=== PATIENT | male | born 1985 | race Two or more races ===

== ENCOUNTER 2017-08-12 17:38 | Emergency (ER) | payer SELFPAY ==
[~2017-08-12] VITALS: Ht 167.6 cm; Wt 61.2 kg
[2017-08-12 19:27] LABS: Basophils # (auto) 0 uL; Basophils % (auto) 0.3 % (0.0-2.0); Eosinophils # (auto) 0 uL; Eosinophils % (auto) 0.1 % (0.0-7.0); Hematocrit 45.6 % (41.0-53.0); Hemoglobin 15.3 g/dL (13.5-17.5); Lymphocytes # (auto) 0.8 uL; Lymphocytes % (auto) 8.3 % (10.0-50.0); Mean Corpuscular Hemoglobin 29.6 pg (28.0-32.0); Mean Corpuscular Hgb Conc. 33.5 g/dL (32.0-36.0); Mean Corpuscular Volume 88.4 fL (80.0-100.0); Mean Platelet Volume 6.9 fL (6.9-10.8); Monocytes # (auto) 0.6 uL; Monocytes % (auto) 5.7 % (0.0-12.0); Neutrophils # (auto) 8.6 uL; Neutrophils % (auto) 85.6 % (37.0-80.0); Nucleated Red Blood Cells % 0.1 %; Platelet Count (auto) 237 10^3/uL (140-450); Red Cell Distribution Width 13.7 % (11.8-14.3)
[2017-08-12 19:40] LABS: Albumin 4.1 g/dL (3.4-5.0); BUN/Creatinine Ratio 15.3; Calcium 8.8 mg/dL (8.5-10.1); Potassium 3.8 mmol/L (3.5-5.1)
[2017-08-12 19:43] LABS: Bilirubin, Total 0.2 mg/dL (0.2-1.0); Total Protein 7.3 g/dL (6.4-8.2)
[2017-08-12] MEDS ORDERED: PHENYTOIN SODIUM 100 MG CAP PO ONE (23:30)
[2017-08-12 23:54] VITALS: BP 128/92
== END 2017-08-12 23:52 | disposition home or self-care (01) ==
LOC: ER 17:38
DX: G40.909 Epilepsy, unspecified, not intractable, without status epilepticus (principal); F12.10 Cannabis abuse, uncomplicated; Z91.14 Patient's other noncompliance with medication regimen
CPT/HCPCS: 36415; 70450; 70480; 80053; 80185; 80307; 85025

== ENCOUNTER 2018-02-13 09:31 | Emergency (ER) | payer SELFPAY ==
[~2018-02-13] VITALS: Ht 175.3 cm; Wt 68.0 kg
[2018-02-13] MEDS ORDERED: LORazepam 2MG/ML-1ML VIAL IV ONE (10:45)
[2018-02-13] MEDS ORDERED: SODIUM CHLORIDE 0.9% 1,000 ML IV ONE (10:57)
[2018-02-13 11:56] LABS: Basophils # (auto) 0 uL; Basophils % (auto) 0.2 % (0.0-2.0); Eosinophils # (auto) 0 uL; Eosinophils % (auto) 0.3 % (0.0-7.0); Hematocrit 44.4 % (41.0-53.0); Hemoglobin 14.6 g/dL (13.5-17.5); Lymphocytes # (auto) 0.7 uL; Lymphocytes % (auto) 7.9 % (10.0-50.0); Mean Corpuscular Hemoglobin 28.4 pg (28.0-32.0); Mean Corpuscular Volume 86.1 fL (80.0-100.0); Monocytes # (auto) 0.5 uL; Monocytes % (auto) 5.4 % (0.0-12.0); Neutrophils # (auto) 7.5 uL; Neutrophils % (auto) 86.2 % (37.0-80.0); Nucleated Red Blood Cells % 0.1 %; Platelet Count (auto) 228 10^3/uL (140-450); Red Blood Cells 5.16 10^6/uL (4.5-5.90); Red Cell Distribution Width 13.2 % (11.8-14.3); White Blood Cell 8.7 10^3/uL (4.4-10.8)
[2018-02-13 12:15] LABS: BUN/Creatinine Ratio 18.9; Bilirubin, Total 0.3 mg/dL (0.2-1.0); Calcium 8.3 mg/dL (8.5-10.1); Magnesium 2.7 mg/dL (1.6-2.6); Potassium 3.9 mmol/L (3.5-5.1); Total Protein 7.1 g/dL (6.4-8.2)
[2018-02-13 13:47] LABS: Alcohol, Urine < 3.0 mg/dL (0-5); Amphetamine Screen, Urine NEGATIVE (NEGATIVE); Barbiturate Scree,Urine NEGATIVE (NEGATIVE); Benzodiazephine Screen, Urine NEGATIVE (NEGATIVE); Cannabinoid Screen, Urine POSITIVE (NEGATIVE); Cocaine Screen, Urine NEGATIVE (NEGATIVE); Opiate Scree,Urine NEGATIVE (NEGATIVE); Phencyclidine Screen, Urine NEGATIVE (NEGATIVE)
[2018-02-13 13:57] LABS: Urine Bacteria NONE SEEN /hpf (None Seen); Urine Blood Negative /uL (Negative); Urine Specific Gravity 1.022 (1.001-1.035); Urine WBC 1 /hpf (0 - 3)
[2018-02-13 15:57] VITALS: BP 111/79
== END 2018-02-13 16:25 | disposition home or self-care (01) ==
LOC: EDSEX 09:31 → ER 09:31 → EDBD 09:31 → ER 16:25
DX: G40.909 Epilepsy, unspecified, not intractable, without status epilepticus (principal); F12.10 Cannabis abuse, uncomplicated
CPT/HCPCS: 36415; 71046; 80053; 80307; 81001; 83735; 85025; 96361; 96374; 99285; J2060; J7030

== ENCOUNTER 2019-09-24 19:10 | Emergency (ER) | payer BC ==
[~2019-09-24] VITALS: Ht 167.6 cm; Wt 61.2 kg
[2019-09-24] MEDS ORDERED: SODIUM CHLORIDE 0.9% 1,000 ML IV ONE ×3 (20:00→21:15)
[2019-09-24] MEDS ORDERED: LORazepam 2MG/ML-1ML VIAL IV ONE (20:00)
[2019-09-24 21:52] LABS: Basophils # (auto) 0 uL; Basophils % (auto) 0.4 % (0.0-2.0); Eosinophils # (auto) 0 uL; Eosinophils % (auto) 0.4 % (0.0-7.0); Hematocrit 41.4 % (41.0-53.0); Hemoglobin 13.8 g/dL (13.5-17.5); Lymphocytes # (auto) 1.1 uL; Lymphocytes % (auto) 10.9 % (10.0-50.0); Mean Corpuscular Hemoglobin 29.2 pg (28.0-32.0); Mean Corpuscular Hgb Conc. 33.4 g/dL (32.0-36.0); Mean Corpuscular Volume 87.4 fL (80.0-100.0); Monocytes # (auto) 0.7 uL; Monocytes % (auto) 7.3 % (0.0-12.0); Platelet Count (auto) 228 10^3/uL (140-450); Red Blood Cells 4.74 10^6/uL (4.5-5.90); Red Cell Distribution Width 13.8 % (11.8-14.3); White Blood Cell 9.9 10^3/uL (4.4-10.8)
[2019-09-24 22:02] LABS: Potassium 3.7 mmol/L (3.5-5.1)
[2019-09-24 22:10] LABS: Albumin 3.8 g/dL (3.4-5.0); BUN/Creatinine Ratio 15.6; Bilirubin, Total 0.3 mg/dL (0.2-1.0); Calcium 8.3 mg/dL (8.5-10.1); Total Protein 6.6 g/dL (6.4-8.2)
[2019-09-24 23:28] LABS: Urine Bacteria FEW /hpf (None Seen); Urine Blood TRACE /uL (Negative); Urine Sperm PRESENT /hpf (None Seen); Urine WBC 1 /hpf (0 - 3)
[2019-09-24 23:42] LABS: Alcohol, Urine < 3.0 mg/dL (0-5); Amphetamine Screen, Urine NEGATIVE (NEGATIVE); Barbiturate Scree,Urine NEGATIVE (NEGATIVE); Benzodiazephine Screen, Urine NEGATIVE (NEGATIVE); Cannabinoid Screen, Urine POSITIVE (NEGATIVE); Cocaine Screen, Urine POSITIVE (NEGATIVE); Opiate Scree,Urine NEGATIVE (NEGATIVE); Phencyclidine Screen, Urine NEGATIVE (NEGATIVE)
[2019-09-25] MEDS ORDERED: LEVETIRACETAM INJ 1,000 MG in D5W 5% 100 ML IV ONE ×2
[2019-09-25] MEDS ORDERED: LEVETIRACETAM 500 MG/5ML INJ IV ONE (00:30)
[2019-09-25 01:00] VITALS: BP 118/73
== END 2019-09-25 01:54 | disposition home or self-care (01) ==
LOC: EDBD 19:10 → ER 19:15
DX: R56.9 Unspecified convulsions (principal); F19.10 Other psychoactive substance abuse, uncomplicated; E86.0 Dehydration
CPT/HCPCS: 36415; 70450; 80053; 80307; 80320; 81001; 85025; 94761; 96361; 96365; 96375; 99284; J1953; J2060; J7030; J7060

== ENCOUNTER 2020-06-02 12:16 | Emergency (ER) | payer BC, OTHER ==
[~2020-06-02] VITALS: Ht 175.3 cm; Wt 68.0 kg
[2020-06-02] MEDS ORDERED: SODIUM CHLORIDE 0.9% 1,000 ML IV ONE (13:39)
[2020-06-02 13:45] LABS: Basophils # (auto) 0 10 ^3/uL (0-0.2); Basophils % (auto) 0.5 % (0.0-2.0); Eosinophils # (auto) 0 10 ^3/uL (0-0.8); Eosinophils % (auto) 0.5 % (0.0-7.0); Hematocrit 40.4 % (41.0-53.0); Hemoglobin 13.4 g/dL (13.5-17.5); Lymphocytes # (auto) 0.9 10 ^3/uL (0.4-5.4); Lymphocytes % (auto) 10.8 % (10.0-50.0); Mean Corpuscular Hemoglobin 29.1 pg (28.0-32.0); Mean Corpuscular Hgb Conc. 33.1 g/dL (32.0-36.0); Monocytes # (auto) 0.6 10 ^3/uL (0-1.3); Monocytes % (auto) 7.3 % (0.0-12.0); Neutrophils # (auto) 6.6 10 ^3/uL (1.6-8.6); Neutrophils % (auto) 80.9 % (37.0-80.0); Nucleated Red Blood Cells % 0.1 %; Platelet Count (auto) 249 10^3/uL (140-450); Red Blood Cells 4.59 10^6/uL (4.5-5.90); Red Cell Distribution Width 13.7 % (11.8-14.3); White Blood Cell 8.1 10^3/uL (4.4-10.8)
[2020-06-02] MEDS ORDERED: LORazepam 2MG/ML-1ML VIAL IV ONE (13:45)
[2020-06-02 13:59] LABS: Albumin 3.5 g/dL (3.4-5.0); Calcium 8.8 mg/dL (8.5-10.1); Potassium 4.3 mmol/L (3.5-5.1)
[2020-06-02 14:04] LABS: BUN/Creatinine Ratio 13.8; Bilirubin, Total 0.3 mg/dL (0.2-1.0); Total Protein 6.7 g/dL (6.4-8.2)
[2020-06-02] MEDS ORDERED: LIDOCAINE 2% (LOCAL ANESTH.) PF 5ml SDV ONE (15:19)
[2020-06-02 15:22] LABS: Urine WBC None Seen /hpf (0 - 3)
[2020-06-02 15:49] LABS: Urine Bacteria NONE SEEN /hpf (None Seen); Urine Blood Negative /uL (Negative); Urine Specific Gravity 1.008 (1.001-1.035)
[2020-06-02 15:50] LABS: Amphetamine Screen, Urine NEGATIVE (NEGATIVE); Barbiturate Scree,Urine NEGATIVE (NEGATIVE); Cannabinoid Screen, Urine POSITIVE (NEGATIVE); Cocaine Screen, Urine NEGATIVE (NEGATIVE); Opiate Scree,Urine NEGATIVE (NEGATIVE); Phencyclidine Screen, Urine NEGATIVE (NEGATIVE)
[2020-06-02 15:58] LABS: Benzodiazephine Screen, Urine NEGATIVE (NEGATIVE)
[2020-06-02] MEDS ORDERED: IBUPROFEN 600 MG TAB PO ONE (16:00)
[2020-06-02 16:07] LABS: Alcohol, Urine < 3.0 mg/dL (0-10)
[2020-06-02] MEDS ORDERED: TETANUS-DIPTH-ACEL PERTUSSIS 0.5ML SYR Tdap IM ONE (16:15)
[2020-06-02 16:54] VITALS: BP 144/80
== END 2020-06-02 16:51 | disposition home or self-care (01) ==
LOC: ER 12:16 → EDBD 12:16 → ER 16:51
DX: S01.112A Laceration without foreign body of left eyelid and periocular area, initial encounter (principal); G40.909 Epilepsy, unspecified, not intractable, without status epilepticus; Z91.19 Patient's noncompliance with other medical treatment and regimen; W22.8XXA Striking against or struck by other objects, initial encounter; Y93.89 Activity, other specified; Y92.89 Other specified places as the place of occurrence of the external cause; Y99.8 Other external cause status
CPT/HCPCS: 12011; 36415; 70450; 71046; 72125; 80053; 80307; 81001; 83735; 85025; 90471; 90715; 93005; 96365; 96375; 99285; J1953; J2001; J2060; J7030; J7060

== ENCOUNTER → 2020-08-01 | Emergency (ER) | payer SELFPAY ==
[~2020-08-01] VITALS: Ht 175.3 cm; Wt 63.5 kg
[~2020-08-01] MED LIST: BACITRACIN INJ 50000 UNIT VIAL TOP ONE; BACITRACIN TOP OINT 1 UD PKG TOP ONE; LIDOCAINE 1% (LOCAL ANESTH.) PF 5ml SDV ID ONE; LIDOCAINE 1% HCL (LOCAL ANESTH.) INJ 20ML MDV ONE
[2020-08-01 18:50] VITALS: BP 123/62
== END | disposition home or self-care (01) ==
LOC: ER 15:38
DX: S01.112A Laceration without foreign body of left eyelid and periocular area, initial encounter (principal); R56.9 Unspecified convulsions; X58.XXXA Exposure to other specified factors, initial encounter; Y93.89 Activity, other specified; Y92.89 Other specified places as the place of occurrence of the external cause; Y99.8 Other external cause status
CPT/HCPCS: 12013; 70450; 70486; 96365; 99285; J1953; J2001; J7060

== ENCOUNTER 2020-09-16 17:18 | Emergency (ER) | payer BC, MEDICAID ==
[~2020-09-16] VITALS: Ht 175.3 cm; Wt 63.5 kg
[2020-09-16 22:10] VITALS: BP 116/74
== END 2020-09-16 22:37 | disposition home or self-care (01) ==
LOC: ER 17:18
DX: R56.9 Unspecified convulsions (principal); Z76.0 Encounter for issue of repeat prescription

== ENCOUNTER 2020-10-21 00:20 | Emergency (ER) | payer MEDICAID ==
[~2020-10-21] VITALS: Ht 170.2 cm; Wt 61.2 kg
[2020-10-21 08:22] VITALS: BP 122/68
[2020-10-21] MEDS ORDERED: levETIRAcetam 500 MG TAB PO ONE (08:45)
== END 2020-10-21 03:26 | disposition left against medical advice (07) ==
LOC: ER 00:39
DX: G40.909 Epilepsy, unspecified, not intractable, without status epilepticus (principal); F10.129 Alcohol abuse with intoxication, unspecified; Y90.8 Blood alcohol level of 240 mg/100 ml or more

== ENCOUNTER 2020-11-28 13:38 | Emergency (ER) | payer MEDICAID ==
[~2020-11-28] VITALS: Ht 175.3 cm; Wt 63.5 kg
[2020-11-28] MEDS ORDERED: SODIUM CHLORIDE 0.9% 1,000 ML IV ONE (14:30)
[2020-11-28] MEDS ORDERED: levETIRAcetam 500 MG/5ML INJ IV ONE (16:14)
[2020-11-28 16:48] LABS: Basophils # (auto) 0 10 ^3/uL (0-0.2); Basophils % (auto) 0.3 % (0.0-2.0); Eosinophils # (auto) 0 10 ^3/uL (0-0.8); Eosinophils % (auto) 0.4 % (0.0-7.0); Hematocrit 41.3 % (41.0-53.0); Hemoglobin 14.1 g/dL (13.5-17.5); Lymphocytes # (auto) 1.1 10 ^3/uL (0.4-5.4); Lymphocytes % (auto) 11.2 % (10.0-50.0); Mean Corpuscular Hemoglobin 29.2 pg (28.0-32.0); Mean Corpuscular Volume 85.8 fL (80.0-100.0); Monocytes # (auto) 0.6 10 ^3/uL (0-1.3); Monocytes % (auto) 6.2 % (0.0-12.0); Neutrophils % (auto) 81.9 % (37.0-80.0); Platelet Count (auto) 241 10^3/uL (140-450); Red Blood Cells 4.82 10^6/uL (4.5-5.90); Red Cell Distribution Width 13.8 % (11.8-14.3); White Blood Cell 9.7 10^3/uL (4.4-10.8)
[2020-11-28 16:57] LABS: BUN/Creatinine Ratio 13.8; Potassium 3.8 mmol/L (3.5-5.1)
[2020-11-28 16:59] LABS: Bilirubin, Total 0.2 mg/dL (0.2-1.0); Total Protein 7.2 g/dL (6.4-8.2)
[2020-11-28] MEDS ORDERED: ACETAMINOPHEN 500 MG TAB PO ONE ×2 (19:33→19:45)
[2020-11-28 20:15] VITALS: BP 131/89
[2020-11-28 22:51] LABS: Alcohol, Urine < 3.0 mg/dL (0-10); Amphetamine Screen, Urine NEGATIVE (NEGATIVE); Barbiturate Scree,Urine NEGATIVE (NEGATIVE); Benzodiazephine Screen, Urine NEGATIVE (NEGATIVE); Cannabinoid Screen, Urine POSITIVE (NEGATIVE); Cocaine Screen, Urine NEGATIVE (NEGATIVE); Opiate Scree,Urine NEGATIVE (NEGATIVE); Phencyclidine Screen, Urine NEGATIVE (NEGATIVE)
== END 2020-11-28 22:10 | disposition home or self-care (01) ==
LOC: ER 13:38 → EDBD 13:38 → EDSEX 13:38 → ER 22:10
DX: G40.909 Epilepsy, unspecified, not intractable, without status epilepticus (principal); F12.10 Cannabis abuse, uncomplicated
CPT/HCPCS: 36415; 70450; 80053; 80307; 82542; 83735; 85025; 96361; 96365; 96366; 99284; J1953; J7030; J7060

== ENCOUNTER 2022-03-19 10:08 | Emergency (ER) | payer MEDICAID, OTHER ==
[~2022-03-19] VITALS: Ht 170.2 cm; Wt 63.5 kg
[2022-03-19] MEDS ORDERED: SILV1CRE82 TOP (10:40)
[2022-03-19 10:56] VITALS: BP 113/80
== END 2022-03-19 10:59 | disposition home or self-care (01) ==
LOC: ER 10:08
DX: T22.20XA Burn of second degree of shoulder and upper limb, except wrist and hand, unspecified site, initial encounter (principal); X10.2XXA Contact with fats and cooking oils, initial encounter; Y93.89 Activity, other specified; Y92.89 Other specified places as the place of occurrence of the external cause; Y99.8 Other external cause status
CPT/HCPCS: 16020

== ENCOUNTER 2024-04-05 19:26 | Emergency (ER) | payer SELFPAY ==
[~2024-04-05] VITALS: Ht 177.8 cm; Wt 72.7 kg
[2024-04-05 19:26] VITALS: BP 155/64; PULSE 71; RESP 16; O2SAT 100
[~2024-04-05 19:26] MED LIST changes: -BACITRACIN INJ 50000 UNIT VIAL TOP ONE; -BACITRACIN TOP OINT 1 UD PKG TOP ONE; -LIDOCAINE 1% (LOCAL ANESTH.) PF 5ml SDV ID ONE; -LIDOCAINE 1% HCL (LOCAL ANESTH.) INJ 20ML MDV ONE; +SILV1CRE82 TOP
[2024-04-05] MEDS ORDERED: LEVE100012 PO (19:47)
[2024-04-05] MEDS: levETIRAcetam 1000 mg/100ml 100 ML IV ONE (19:50)
[2024-04-05 20:16] LABS: Chloride 104 mmol/L (98-107); Potassium 3.9 mmol/L (3.5-5.1); Sodium 138 mmol/L (136-145)
[2024-04-05 20:17] LABS: Anion Gap 15 (5-15); Carbon Dioxide 19 mmol/L (20-30)
[2024-04-05 20:22] LABS: BUN/Creatinine Ratio 9.9 (10.0-20.0); Blood Urea Nitrogen 11 mg/dL (9-23); Glucose 132 mg/dL (74-106)
[2024-04-05 20:23] LABS: Blood Alcohol < 3.0 mg/dL (<10)
== END 2024-04-05 20:58 | disposition home or self-care (01) ==
LOC: EDBD 19:26 → ER 19:26 → EDSEX 19:26 → ER 20:58
DX: G40.909 Epilepsy, unspecified, not intractable, without status epilepticus (principal); F15.90 Other stimulant use, unspecified, uncomplicated; Z76.0 Encounter for issue of repeat prescription
CPT/HCPCS: 36415; 80048; 80320; 96365; 99284; J1953

== ENCOUNTER 2024-11-23 15:28 | Emergency (ER) | payer SELFPAY ==
[~2024-11-23] VITALS: Ht 175.3 cm; Wt 63.6 kg
[~2024-11-23 15:28] MED LIST changes: +LEVE100012 PO
[2024-11-23 15:30] VITALS: BP 145/75; PULSE 114; RESP 20; TEMP 97.8; O2SAT 99
--- NOTE | 2024-11-23 15:53 | ED.PDOC ---
History of Present Illness HPI Comments 39 y/o M, seizures and polysubstance abuse and a FMHx of DM, is BIBA s/p seizure episode, today. Per EMS report, patient is stated to have had a witnessed seizure, lasting, approximately, 5x minutes in duration, while riding on the bus. Seizure was reported to have been witnessed by business analyst consultant then in addition to the patient taking 500mg BID Keppra but having Hx of mixed compliancy in the past. Patient was also commented to have admit to EtOH consumption, yesterday, and using marijuana, this morning. On scene, patient was found with a blood glucose of 167, with no signs of trauma or incontinence. At time of assessment, patient reports on last seizure taking place 2x months ago and denies having any headache, injuries, or other associated symptoms or modifiers at this time. Chief Complaint: Seizure Time Seen by MD: 15:40 Primary Care Provider: [facility] Reviewed Notes: Nurses Notes, Evaluation Specialist Notes, Medications, Allergies Allergies: Coded Allergies: NO KNOWN ALLERGIES (Unverified , 08/12/17) Home Meds Active Scripts Levetiracetam (Keppra) 1,000 Mg Tab, 1 TAB PO BID, #60 TAB 5 Refills Prov:YNES JOHN MD 04/05/24 Silver Sulfadiazine (Silvadene) 1 % Cre, 1 APPLIC TOP DAILY for 7 Days, #50 GRAMS Prov:MIKHAIL ROBERTS MD 03/19/22 Information Source: Patient, Emergency Med Personnel Mode of Arrival: EMS Severity: Moderate Timing: Hours Duration: Minutes Prehospital treatment: 12 Lead EKG, Accucheck, Fabrication And Assembly Supervisor Past Medical History PAST MEDICAL HISTORY: Seizures Surgical History (Other): left wrist Sx Family History Family History: Reviewed,noncontributory to illness, No family hx of Cancer, No family hx of Heart bernadette, No family hx of HTN, No family hx ofKidney bernadette, No fami ly hx of Liver bernadette, No family hx of Lung bernadette, No family hx of Stroke, Family hx of DM Social History Smoker: Non-Smoker Alcohol: Occasionally Drugs: Marijuana Lives In: Home Constitutional: denies: chills, diaphoresis, fatigue, fever, malaise, sweats, weakness, others EENTM: denies: blurred vision, double vision, ear bleeding, ear discharge, ear drainage, ear pain, ear ringing, eye pain, eye redness, hearing loss, mouth pain, mouth swelling, nasal discharge, nose bleeding, nose congestion, nose pain, photophobia, tearing, throat pain, throat swelling, voice changes, others Respiratory: denies: cough, hemoptysis, orthopnea, SOB at rest, shortness of breath, SOB with excertion, stridor, wheezing, others Cardiovascular: denies: chest pain, dizzy spells, diaphoresis, Dyspnea on exertion, edema, irregular heart beat, left arm pain, lightheadedness, palpitations, PND, syncope, others Gastrointestinal: denies: abdomen distended, abdominal pain, blood streaked bowels, constipated, diarrhea, dysphagia, difficulty swallowing, hematemesis, melena, nausea, poor appetite, poor fluid intake, rectal bleeding, rectal pain, vomiting, others Genitourinary: denies: burning, dysuria, flank pain, frequency, hematuria, incontinence, penile discharge, penile sore, pain, testicle pain, testicle swelling, urgency, others Neurological: reports: seizure; denies: dizziness, fainting, headache, left sided numbness, left sided weakness, numbness, paresthesia, pre-existing deficit, right sided numbness, right sided weakness, speech problems, tingling, tremors, weakness, others Musculoskeletal: denies: back pain, gout, joint pain, joint swelling, muscle pain, muscle stiffness, neck pain, others Integumetry: denies: bruises, change in color, change in hair/nails, dryness, laceration, lesions, lumps, rash, wounds, others Allergic/Immunocompromised: denies: Difficulty Healing, Frequent Infections, Hives, Itching, others Hematologic/Lymphatic: denies: anemia, blood clots, easy bleeding, easy bruising, swollen glands, others Endocrine: denies: excessive hunger, excessive sweating, excessive thirst, excessive urination, flushing, intolerance to cold, intolerance to heat, un explained weight gain, unexplained weight loss, others Psychiatric: denies: anxiety, bipolar disorder, depression, hopeless, panic disorder, schizophrenia, sleepless, suicidal, others All Other Systems: Reviewed and Negative Physical Exam General Appearance: No Apparent Distress, Other (The patient has a odor marijuana) HEENT: Normal ENT Inspection, Pharynx Normal, TMs Normal Neck: Full Range of Motion, Non-Tender, Normal, Normal Inspection Respiratory: Chest Non-Tender, Lungs Clear, No Accessory Muscle Use, No Respiratory Distress, Normal Breath Sounds Cardiovascular: No Edema, No JVD, No Murmur, No Gallop, Normal Peripheral Pulses, Regular Rate/Rhythm Breast Exam: Deferred Gastrointestinal: No Organomegaly, Non Tender, No Pulsatile Mass, Normal Bowel Sounds, Soft Genitalia: Deferred Pelvic: Deferred Rectal: Deferred Extremities: No calf tenderness, Normal capillary refill, Normal inspection, Normal range of motion, Non-tender, No pedal edema Musculoskeletal : Apperance: Normal Neurologic: Alert, acid splicer II-XII nml as Tested, No Motor Deficits, Normal Affect, Normal Mood, No Sensory Deficits Cerebellar Function: Normal Reflexes: Normal Skin: Dry, Normal Color, Warm Lymphatic: No Adenopathy Was a procedure done? Was a procedure done?: No Differential Dx Considerations may include: seizure, pseudoseizures, medication noncompliant, encephalopathy, electrolyte imbalance X-Ray, Labs, Meds, VS At this time, the patient was being discharged. The patient has been seizure-free here in the emergency department's The patient will follow up with the primary care doctor The patient was told to be compliant with his Keppra The patient was also told to put down the alcohol as well as the marijuana The patient states that he would like to leave at this time so he was walking out of the department's Time of 1ST Reevaluation: 16:10 Reevaluation 1ST: Unchanged Patient Education/Counseling: Diagnosis, Treatment, Prognosis, Need For Follow Up Family Education/Counseling: No Family Present Departure 1 Departure Time of Disposition: 16:16 Impression: Primary Impression: Breakthrough seizure Disposition: 01 HOME / SELF CARE / HOMELESS Condition: Fair Discharged With: Self Critical Care Note Critical Care Time?: No Stability Stability form required: No Heart Score Heart Score: Heart Score Response (Comments) Value History N/A 0 EKG N/A 0 Age N/A 0 Risk Factors N/A 0 Troponin N/A 0 Total 0 I personally scribed for YNES JOHN MD ([email or web address]) on 11/23/24 at 15:53. Electronically submitted by Tom Castorena ([email or web address]). YNES JOHN MD Nov 23, 2024 15:53
[2024-11-23] MEDS: levETIRAcetam 1000 mg/100ml 100 ML IV ONE (16:18)
== END 2024-11-23 17:02 | disposition home or self-care (01) ==
LOC: ER 15:28 → EDBD 15:28 → ER 16:40
DX: G40.909 Epilepsy, unspecified, not intractable, without status epilepticus (principal); F12.90 Cannabis use, unspecified, uncomplicated; Z98.890 Other specified postprocedural states
CPT/HCPCS: 96365; 99284; J1953

== ENCOUNTER 2025-02-14 15:49 | Emergency (ER) | payer MEDICAID, OTHER ==
[~2025-02-14] VITALS: Ht 175.3 cm; Wt 61.3 kg
[2025-02-14 16:05] VITALS: BP 112/74; PULSE 78; RESP 16; TEMP 98.2; O2SAT 98
--- NOTE | 2025-02-14 16:38 | ED.PDOC ---
History of Present Illness HPI Comments 39M presents to the ER w/ no prior Hx associated to the c/c of a medication refill. Pt reports on having to run out of Keppra 500mg of 2 tablets and has to take 2 tablets a day. Pt notes that she has no insurance. Pt states that the last Sz was 1 month ago. PMHx of Sz. Denies chills, fever, N/V/D, SOB, CP or no other associated symptom's, modifiers, recent injuries or sick contacts at this time. Chief Complaint: Seizure Time Seen by MD: 16:20 Primary Care Provider: [facility] Reviewed Notes: Nurses Notes, Medications, Allergies Allergies: Coded Allergies: NO KNOWN ALLERGIES (Unverified , 08/12/17) Home Meds Active Scripts Levetiracetam (Keppra) 1,000 Mg Tab, 1 TAB PO BID, #60 TAB 5 Refills Prov:YNES JOHN MD 04/05/24 Silver Sulfadiazine (Silvadene) 1 % Cre, 1 APPLIC TOP DAILY for 7 Days, #50 GRAMS Prov:MIKHAIL ROBERTS MD 03/19/22 Information Source: Patient Mode of Arrival: Ambulatory Severity: Moderate Timing: Came on: Gradually Duration: Since onset Prehospital treatment: None Medication Refill: Ran out of Medication, For: Other (Sz) Past Medical History PAST MEDICAL HISTORY: Seizures Surgical History: Denies all surgeries Family History Family History: Reviewed,noncontributory to illness, Unknown Social History Smoker: Non-Smoker Alcohol: Unknown Drugs: Unknown Lives In: Home Constitutional: denies: chills, diaphoresis, fatigue, fever, malaise, sweats, weakness, others EENTM: denies: blurred vision, double vision, ear bleeding, ear discharge, ear drainage, ear pain, ear ringing, eye pain, eye redness, hearing loss, mouth pain, mouth swelling, nasal discharge, nose bleeding, nose congestion, nose pain, photophobia, tearing, throat pain, throat swelling, voice changes, others Respiratory: denies: cough, hemoptysis, orthopnea, SOB at rest, shortness of breath, SOB with excertion, stridor, wheezing, others Cardiovascular: denies: chest pain, dizzy spells, diaphoresis, Dyspnea on exertion, edema, irregular heart beat, left arm pain, lightheadedness, palpitations, PND, syncope, others Gastrointestinal: denies: abdomen distended, abdominal pain, blood streaked bowels, constipated, diarrhea, dysphagia, difficulty swallowing, hematemesis, melena, nausea, poor appetite, poor fluid intake, rectal bleeding, rectal pain, vomiting, others Genitourinary: denies: burning, dysuria, flank pain, frequency, hematuria, incontinence, penile discharge, penile sore, pain, testicle pain, testicle swelling, urgency, others Neurological: denies: dizziness, fainting, headache, left sided numbness, left sided weakness, numbness, paresthesia, pre-existing deficit, right sided numbness, right sided weakness, seizure, speech problems, tingling, tremors, weakness, others Musculoskeletal: denies: back pain, gout, joint pain, joint swelling, muscle pain, muscle stiffness, neck pain, others Integumetry: denies: bruises, change in color, change in hair/nails, dryness, laceration, lesions, lumps, rash, wounds, others Allergic/Immunocompromised: denies: Difficulty Healing, Frequent Infections, Hives, Itching, others Hematologic/Lymphatic: denies: anemia, blood clots, easy bleeding, easy bruising, swollen glands, others Endocrine: denies: excessive hunger, excessive sweating, excessive thirst, excessive urination, flushing, intolerance to cold, intolerance to heat, unexplained weight gain, unexplained weight loss, others Psychiatric: denies: anxiety, bipolar disorder, depression, hopeless, panic disorder, schizophrenia, sleepless, suicidal, others All Other Systems: Reviewed and Negative Physical Exam General Appearance: No Apparent Distress, Normal HEENT: Normal ENT Inspection, Pharynx Normal, TMs Normal Neck: Full Range of Motion, Non-Tender, Normal, Normal Inspection Respiratory: Chest Non-Tender, Lungs Clear, No Accessory Muscle Use, No Respiratory Distress, Normal Breath Sounds Cardiovascular: No Edema, No JVD, No Murmur, No Gallop, Normal Peripheral Pulses, Regular Rate/Rhythm Breast Exam: Deferred Gastrointestinal: No Organomegaly, Non Tender, No Pulsatile Mass, Normal Bowel Sounds, Soft Genitalia: Deferred Pelvic: Deferred Rectal: Deferred Extremities: No calf tenderness, Normal capillary refill, Normal inspection, Normal range of motion, Non-tender, No pedal edema Musculoskeletal : Apperance: Normal Neurologic: Alert, prop maker II-XII nml as Tested, No Motor Deficits, Normal Affect, Normal Mood, No Sensory Deficits Cerebellar Function: Normal Reflexes: Normal Skin: Dry, Normal Color, Warm Lymphatic: No Adenopathy Was a procedure done? Was a procedure done?: No Differential Dx Considerations may include: Medication refill X-Ray, Labs, Meds, VS Vital Signs Date Time Temp Pulse Resp B/P (MAP) Pulse Ox O2 Delivery O2 Flow Rate FiO2 02/14/25 16:05 98.2 78 16 112/74 (87) 98 98.2 X-Ray, Labs, Meds, VS Comment Imaging: X-rays and CT scans were reviewed and interpreted by this provider, imaging shows no fractures and no pathological disease. Pending radiology review. Laboratory: Labs reviewed and interpreted by this provider. No significant abnormalities noted. Patient has prior medical visits reviewed. Med reconciliation performed Vital signs reviewed Time of 1ST Reevaluation: 16:50 Reevaluation 1ST: Unchanged Patient Education/Counseling: Diagnosis, Treatment, Prognosis, Need For Follow Up (Follow up in the emergency department in the next 24-48 hours if symptoms worsen. It was advised to follow up with your primary care doctor in the next 3-4 days for further evaluation.) Family Education/Counseling: No Family Present Departure 1 Departure Time of Disposition: 17:15 Impression: Primary Impression: Medication refill Disposition: 01 HOME / SELF CARE / HOMELESS Condition: Fair e-Prescriptions Levetiracetam (Levetiracetam) 500 Mg Tab 1000 MG PO BID for 30 Days, #120 TAB Prov: JOSTIN ROBERT 02/14/25 Discharged With: Self Critical Care Note Critical Care Time?: No Stability Stability form required: No Heart Score Heart Score: Heart Score Response (Comments) Value History N/A 0 EKG N/A 0 Age N/A 0 Risk Factors N/A 0 Troponin N/A 0 Total 0 I personally scribed for JOSTIN ROBERT ([email or web address]) on 02/14/25 at 16:38. Electronically submitted by Georges Pagan ([email or web address]). JOSTIN ROBERT Feb 14, 2025 16:38
[2025-02-14] MEDS ORDERED: LEVE500T3 PO (17:16)
== END 2025-02-14 18:35 | disposition home or self-care (01) ==
LOC: ER 15:49
DX: R56.9 Unspecified convulsions (principal); Z76.0 Encounter for issue of repeat prescription; Z79.899 Other long term (current) drug therapy

== ENCOUNTER 2025-02-20 17:34 | Emergency (ER) | payer MEDICAID ==
[~2025-02-20] VITALS: Ht 170.2 cm; Wt 61.4 kg
[~2025-02-20 17:34] MED LIST changes: +LEVE500T3 PO
--- NOTE | 2025-02-20 17:59 | ECG ---
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
--- NOTE | 2025-02-20 18:00 | ED.PDOC ---
HPI (NEURO) HPI Comments 39-year-old male with past medical history pertinent for seizures, presents to ED by ambulance for a witnessed seizure x1 hour ago. EMS, the patient was at a bus stop and bystanders stated that patient fell back and hit his head and there was a witnessed tonic-clonic seizure that lasted approximately 1 minute. EMS also states that there were beer cans nearby. EMS states that the patient was postictal on scene, however is coming back to normal mental status. Patient is reporting pain on his tongue from biting his tongue. He denies any nausea, vomiting, fever, chills, abdominal pain, chest pain, shortness of breath, incontinence. EMS does report that the patient takes Keppra and he has been compliant with his medications. Blood sugar 145 on scene. Chief Complaint: Seizure Time Seen by MD: 17:40 Primary Care Provider: NONE Reviewed Notes: Nurses Notes, Medications, Allergies Past Medical History PAST MEDICAL HISTORY: Seizures Surgical History: Denies all surgeries Family History Family History: Reviewed,noncontributory to illness, Unknown Social History Smoker: Non-Smoker Alcohol: Unknown Drugs: Unknown Lives In: Home Constitutional: denies: chills, diaphoresis, fatigue, fever, malaise, sweats, weakness, others EENTM: reports: others (tongue pain); denies: blurred vision, double vision, ear bleeding, ear discharge, ear drainage, ear pain, ear ringing, eye pain, eye redness, hearing loss, mouth pain, mouth swelling, nasal discharge, nose bleeding, nose congestion, nose pain, photophobia, tearing, throat pain, throat swelling, voice changes Respiratory: denies: cough, hemoptysis, orthopnea, SOB at rest, shortness of breath, SOB with excertion, stridor, wheezing, others Cardiovascular: denies: chest pain, dizzy spells, diaphoresis, Dyspnea on exertion, edema, irregular heart beat, left arm pain, lightheadedness, palpitations, PND, syncope, others Gastrointestinal: denies: abdomen distended, abdominal pain, blood streaked bowels, constipated, diarrhea, dysphagia, difficulty swallowing, hematemesis, melena, nausea, poor appetite, poor fluid intake, rectal bleeding, rectal pain, vomiting, others Genitourinary: denies: burning, dysuria, flank pain, frequency, hematuria, incontinence, penile discharge, penile sore, pain, testicle pain, testicle swelling, urgency, others Neurological: reports: seizure; denies: dizziness, fainting, headache, left sided numbness, left sided weakness, numbness, paresthesia, pre-existing deficit, right sided numbness, right sided weakness, speech problems, tingling, tremors, weakness, others Musculoskeletal: denies: back pain, gout, joint pain, joint swelling, muscle pain, muscle stiffness, neck pain, others Integumetry: denies: bruises, change in color, change in hair/nails, dryness, laceration, lesions, lumps, rash, wounds, others Allergic/Immunocompromised: denies: Difficulty Healing, Frequent Infections, Hives, Itching, others Hematologic/Lymphatic: denies: anemia, blood clots, easy bleeding, easy bruising, swollen glands, others Endocrine: denies: excessive hunger, excessive sweating, excessive thirst, excessive urination, flushing, intolerance to cold, intolerance to heat, unexplained weight gain, unexplained weight loss, others Psychiatric: denies: anxiety, bipolar disorder, depression, hopeless, panic disorder, schizophrenia, sleepless, suicidal, others All Other Systems: Reviewed and Negative Physical Exam General Appearance: Mild Distress (Patient appears to be disheveled from seizure, however is coming back to normal mental status. Answering questions appropriately.), Normal HEENT: Head (Mild hematoma noted to the posterior superior aspect of the head, no active bleeding. No lacerations.), TMs Normal, Other (Left lateral tongue with a superficial bite naima, otherwise no active bleeding) Neck: Full Range of Motion, Non-Tender, Normal, Normal Inspection Respiratory: Chest Non-Tender, Lungs Clear, No Accessory Muscle Use, No Respiratory Distress, Normal Breath Sounds Cardiovascular: No Edema, No JVD, No Murmur, No Gallop, Normal Peripheral Pulses, Regular Rate/Rhythm Breast Exam: Deferred Gastrointestinal: No Organomegaly, Non Tender, No Pulsatile Mass, Normal Bowel Sounds, Soft Genitalia: Deferred Pelvic: Deferred Rectal: Deferred Extremities: No calf tenderness, Normal capillary refill, Normal inspection, Normal range of motion, Non-tender, No pedal edema Musculoskeletal : Apperance: Normal Neurologic: Alert, jai alai player II-XII nml as Tested, No Motor Deficits, Normal Affect, Normal Mood, No Sensory Deficits Cerebellar Function: Normal Reflexes: Normal Skin: Dry, Normal Color, Warm Lymphatic: No Adenopathy EKG EKG : Pulse Rate (adult): 105 [place]: Normal Cardiac Rhythm: ST Block: None Hypertrophy: None ST: Normal Was a procedure done? Was a procedure done?: No Differential Diagnosis (SZ) Seizure: Psychogenic Seizure, Alcohol Withdrawl, Anticonvulsant Withdrawl, Closed Head Injury, CVA/TIA, Drug Ingestion, Hypocalcemia, Hypoglycemia, Hyponatremia, Hypoxemia, Mass Lesion, Encephalopathy, Epilepsy-Break Through, Epilepsy-Status X-Ray, Labs, Meds, VS Vital Signs Date Time Temp Pulse Resp B/P (MAP) Pulse Ox O2 Delivery O2 Flow Rate FiO2 02/20/25 20:14 76 18 107/67 (80) 98 02/20/25 18:14 98.0 105 16 96/65 (75) 97 98.0 02/20/25 18:14 105 16 02/20/25 18:00 105 02/20/25 17:48 105 02/20/25 17:45 98.8 112 18 148/80 (102) 96 98.8 Lab Test 02/20/25 19:30 02/20/25 17:55 Range/Units Urine Color Colorless Yellow Urine Clarity Ex.turbid Clear Urine pH 5.5 5.0-9.0 Urine Specific [place] 1.020 1.001-1.035 Urine Protein Negative Negative Urine Ketones Negative Negative Urine Blood Negative Negative /uL Urine Nitrite Negative Negative Urine Bilirubin Negative Negative Urine Urobilinogen Normal Negative mg/dL Urine Leukocyte Esterase Negative Negative /uL Urine RBC None seen 0 - 3 /hpf Urine Microscopic WBC < 1 0-3 /HPF Urine Squamous Epithelial Cells Few <5 /hpf Urine Amorphous Crystals Few None Seen /hpf Urine Bacteria None seen None Seen /hpf Urine Glucose Normal Normal mg/dL Urine Opiates Screen Pending Urine Fentanyl Screen Pending Urine Barbiturates Screen Pending Urine Phencyclidine Screen Pending Urine Amphetamines Screen Pending Urine Benzodiazepines Screen Pending Urine Cocaine Screen Pending Urine Cannabinoids Screen Pending White Blood Count 7.1 4.4-10.8 10^3/uL Red Blood Count 5.16 4.5-5.90 10^6/uL Hemoglobin 15.1 13.5-17.5 g/dL Hematocrit 46.8 41.0-53.0 % Mean Corpuscular Volume 90.9 80.0-100.0 fL Mean Corpuscular Hemoglobin 29.2 28.0-32.0 pg Mean Corpuscular Hemoglobin Concent 32.2 32.0-36.0 g/dL Red Cell Distribution Width 13.7 11.8-14.3 % Platelet Count 274 140-450 10^3/uL Mean Platelet Volume 6.8 L 6.9-10.8 fL Neutrophils (%) (Auto) 60.5 37.0-80.0 % Lymphocytes (%) (Auto) 27.5 10.0-50.0 % Monocytes (%) (Auto) 7.5 0.0-12.0 % Eosinophils (%) (Auto) 3.9 0.0-7.0 % Basophils (%) (Auto) 0.6 0.0-2.0 % Neutrophils # (Auto) 4.3 1.6-8.6 10 ^3/uL Lymphocytes # (Auto) 2.0 0.4-5.4 10 ^3/uL Monocytes # (Auto) 0.5 0-1.3 10 ^3/uL Eosinophils # (Auto) 0.3 0-0.8 10 ^3/uL Basophils # (Auto) 0 0-0.2 10 ^3/uL Nucleated Red Blood Cells 0.1 % Sodium Level 141 136-145 mmol/L Potassium Level 4.2 3.5-5.1 mmol/L Chloride Level 106 98-107 mmol/L Carbon Dioxide Level 14 L 20-31 mmol/L Anion Gap 21 H 5-15 Blood Urea Nitrogen 19 9-23 mg/dL Creatinine 1.10 0.700-1.30 mg/dL Glomerular Filtration Rate Calc 89 >90 mL/min BUN/Creatinine Ratio 17.3 10.0-20.0 Serum Glucose 106 74-106 mg/dL Calcium Level 10.0 8.7-10.4 mg/dL Total Bilirubin 0.3 0.2-1.0 mg/dL Aspartate Amino Transferase (AST) 22 13-40 U/L Alanine Aminotransferase (ALT) 19 7-40 U/L Alkaline Phosphatase 87 46-116 U/L Total Protein 7.1 5.7-8.2 g/dL Albumin 4.8 3.2-4.8 g/dL Plasma/Serum Blood Alcohol < 3.0 <10 mg/dL Current Medications Medications (Trade) Dose Ordered Sig/Zeferino Route Start Time Stop Time Status Last Admin Sodium Chloride 1,000 ml @ 1,000 mls/hr Q1H ONCE IV 02/20/25 18:00 02/20/25 18:59 DC 02/20/25 18:21 X-Ray, Labs, Meds, VS Comment CT Head IMPRESSION: 1. No acute intracranial process. MDM: Patient with history as above presented with seizure. History obtained from EMS. Patient was nontoxic, stable, afebrile, in gurney, mild distress. Exam as above. Labs reviewed. CBC was unremarkable. No leukocytosis. No anemia. CMP did not show significant electrolyte abnormalities. Urinalysis was negative for acute infection. Blood alcohol level was normal. Independently reviewed imaging. CT Head did not show any acute intracranial abnormality. Reviewed external records. All findings were discussed with the patient. Differential diagnosis considered. Overall presentation is consistent with seizure. Low suspicion for status epilepticus, TBI, intracranial bleed, skull fracture. Patient was treated with IV fluids and Toradol with improvement in symptoms. Upon re-evaluation, patient states that he feels much better. He states that he has been walking around in the heat a lot, which could have triggered his seizure. He also states that he is running lower of his Keppra and states he has only been taking 500 mg twice a day instead of 1000 mg twice a day. Patient will be prescribed more Keppra. Patient was reevaluated and vital signs were reviewed. Consideration was given for admission, but the patient was stable for outpatient management. Disposition: Discussed the need to follow up diagnostics, including incidental findings. Discharged the patient with instructions to obtain outpatient follow up in 1-2 days of today's symptoms and findings, with strict return precautions if patient develops new or worsening symptoms. This medical document was created using the [employer] dictation system. Although this document has been carefully reviewed, there may still be some phonetic and typographical errors, which are due to imperfections of the software program, and do not reflect any compromise in the patient's medical care. Time of 1ST Reevaluation: 20:25 Reevaluation 1ST: Improved Patient Education/Counseling: Diagnosis, Treatment, Prognosis, Need For Follow Up Family Education/Counseling: No Family Present Departure 1 Departure Time of Disposition: 20:25 Impression: Primary Impression: Seizure Additional Impression: Closed head injury Qualified Codes: S09.90XA - Unspecified injury of head, initial encounter Disposition: HOME / SELF CARE / HOMELESS Condition: Fair e-Prescriptions Levetiracetam (Keppra) 1,000 Mg Tab 1 TAB PO BID, #60 TAB 0 Refills Prov: TAO ROWE 02/20/25 Critical Care Note Critical Care Time?: No Stability Stability form required: No Heart Score Heart Score: Heart Score Response (Comments) Value History N/A 0 EKG N/A 0 Age N/A 0 Risk Factors N/A 0 Troponin N/A 0 Total 0 TAO ROWE PAC Feb 20, 2025 18:00
[2025-02-20 18:07] LABS: Basophils # (auto) 0 10 ^3/uL (0-0.2); Basophils % (auto) 0.6 % (0.0-2.0); Eosinophils # (auto) 0.3 10 ^3/uL (0-0.8); Eosinophils % (auto) 3.9 % (0.0-7.0); Hematocrit 46.8 % (41.0-53.0); Hemoglobin 15.1 g/dL (13.5-17.5); Lymphocytes % (auto) 27.5 % (10.0-50.0); Mean Corpuscular Hemoglobin 29.2 pg (28.0-32.0); Mean Corpuscular Hgb Conc. 32.2 g/dL (32.0-36.0); Mean Corpuscular Volume 90.9 fL (80.0-100.0); Monocytes # (auto) 0.5 10 ^3/uL (0-1.3); Monocytes % (auto) 7.5 % (0.0-12.0); Neutrophils # (auto) 4.3 10 ^3/uL (1.6-8.6); Neutrophils % (auto) 60.5 % (37.0-80.0); Nucleated Red Blood Cells % 0.1 %; Platelet Count (auto) 274 10^3/uL (140-450); Red Blood Cells 5.16 10^6/uL (4.5-5.90); Red Cell Distribution Width 13.7 % (11.8-14.3); White Blood Cell 7.1 10^3/uL (4.4-10.8)
[2025-02-20 18:14] VITALS: TEMP 98
[2025-02-20] MEDS: SODIUM CHLORIDE 0.9% 1,000 ML IV ONE (18:21)
[2025-02-20 18:25] LABS: Alanine Aminotransferase 19 U/L (7-40); Alkaline Phosphatase 87 U/L (46-116); Anion Gap 21 (5-15); Aspartate Aminotransferase 22 U/L (13-40); BUN/Creatinine Ratio 17.3 (10.0-20.0); Blood Urea Nitrogen 19 mg/dL (9-23); Chloride 106 mmol/L (98-107); Potassium 4.2 mmol/L (3.5-5.1); Sodium 141 mmol/L (136-145); Total Protein 7.1 g/dL (5.7-8.2)
[2025-02-20 18:26] LABS: Bilirubin, Total 0.3 mg/dL (0.2-1.0)
[2025-02-20 18:35] LABS: Albumin 4.8 g/dL (3.2-4.8); Carbon Dioxide 14 mmol/L (20-31); Glucose 106 mg/dL (74-106)
--- NOTE | 2025-02-20 18:46 | DVH ---
EXAM: CT HEAD WITHOUT CONTRAST HISTORY: R/o intracranial bleed, head injury s/p seizure COMPARISON: HEAD WITHOUT CONTRAST on DOS: 11/28/20, HEAD WITHOUT CONTRAST on DOS: 08/01/20, HEAD WITHOU T CONTRAST on DOS: 06/02/20 TECHNIQUE: Axial images were obtained and reformatted in coronal and sagittal planes. All CT scans at this medical facility are performed using dose modulation techniques as appropriate t o a performed exam including the following: Automated exposure control was utilized; adjustment of th e MA and/or KV according to patient size; and use of iterative reconstruction technique. CT Dose: CTDI volume is 51.35 mGy. Dose-length product is 823.39 mGy*cm FINDINGS: Supratentorial Region: No evidence for large acute territorial ischemia. No intracranial hemorrhage is noted. Posterior Fossa: No acute abnormality. Brainstem: Unremarkable. Sellar/Suprasellar Region: Unremarkable. Ventricles, Cisterns, Sulci: Age-appropriate. Orbits: Unremarkable. Paranasal Sinuses: Unremarkable. Mastoid Air Cells: Unremarkable. Vasculature: Unremarkable. Bones/Soft Tissues: No acute abnormality. Other: None. IMPRESSION: 1. No acute intracranial process.
[2025-02-20 19:52] LABS: Urine Bacteria None Seen /hpf (None Seen)
[2025-02-20 20:03] LABS: Urine Amorphous Crystal FEW /hpf (None Seen); Urine Blood Negative /uL (Negative); Urine Clarity Ex.Turbid (Clear); Urine Color Colorless (Yellow); Urine Protein, UAD Negative (Negative); Urine Squamous Epithelial Cell FEW /hpf (<5); Urine Urobilinogen Normal (Negative); Urine WBC < 1 /HPF (0-3); Urine pH 5.5 (5.0-9.0)
[2025-02-20 20:14] VITALS: BP 107/67
[2025-02-20] MEDS ORDERED: LEVE100012 PO (20:26)
[2025-02-20] MEDS: KETOROLAC TROMETH 30 MG/ML 1ML VIAL IV ONE (20:43)
[2025-02-20 20:52] VITALS: PULSE 18; RESP 18; O2SAT 98
[2025-02-20 21:08] LABS: Cannabinoid Screen, Urine Pos (NEGATIVE)
[2025-02-20 21:10] LABS: Amphetamine Screen, Urine Neg (NEGATIVE); Barbiturate Scree,Urine Neg (NEGATIVE); Benzodiazephine Screen, Urine Neg (NEGATIVE); Cocaine Screen, Urine Neg (NEGATIVE); Opiate Scree,Urine Neg (NEGATIVE); Phencyclidine Screen, Urine Neg (NEGATIVE)
== END 2025-02-20 20:55 | disposition home or self-care (01) ==
LOC: EDBD 17:34 → EDUNIT# 17:34 → ER 17:41
DX: S09.90XA Unspecified injury of head, initial encounter (principal); R56.9 Unspecified convulsions; Z79.899 Other long term (current) drug therapy; X58.XXXA Exposure to other specified factors, initial encounter; Y93.89 Activity, other specified; Y92.89 Other specified places as the place of occurrence of the external cause; Y99.8 Other external cause status
CPT/HCPCS: 36415; 70450; 80053; 80307; 80320; 81001; 82947; 85025; 93005; 96361; 96374; 99285; J1885